=== PATIENT | male | born 1975 | race Caucasian/White ===

== ENCOUNTER 2018-01-24 01:21 | Emergency (ER) | payer OTHER | END 2018-01-24 03:05 | disposition home or self-care (01) | LOC: ER 01:21 | DX: S69.91XA Unspecified injury of right wrist, hand and finger(s), initial encounter (principal); Y08.89XA Assault by other specified means, initial encounter; Y93.89 Activity, other specified; Y92.89 Other specified places as the place of occurrence of the external cause; Y99.8 Other external cause status | CPT/HCPCS: 29130; 73130; 99284-25 ==